=== PATIENT | male | born 1950 | race Caucasian/White ===

== ENCOUNTER 2020-04-07 16:26 | Emergency (ER) | payer MEDICARE ==
[~2020-04-07] VITALS: Ht 175.3 cm; Wt 90.9 kg
[2020-04-07] MEDS ORDERED: LISINOPRIL10 MG PO (17:29)
[2020-04-07] MEDS ORDERED: SYNTHROID112 MCG PO (17:29)
[2020-04-07] MEDS ORDERED: BUSPAR5 MG PO (17:29)
[2020-04-07] MEDS ORDERED: BENADRYL 25MG C25 MG PO (17:30)
[2020-04-07] MEDS ORDERED: EFFEXOR XR75 MG/CAP PO (17:30)
[2020-04-07] MEDS ORDERED: FISH OIL1000 MG PO (17:31)
[2020-04-07] MEDS ORDERED: VITAMIN D31000 UNI1 PO (17:31)
[2020-04-07] MEDS ORDERED: CRESTOR10 MG PO (17:32)
[2020-04-07 18:09] VITALS: BP 96/50
== END 2020-04-07 18:09 | disposition home or self-care (01) ==
LOC: ED 16:26
DX: U07.1 COVID-19 (principal); R50.9 Fever, unspecified; R52 Pain, unspecified; I10 Essential (primary) hypertension

== ENCOUNTER 2020-04-12 20:33 | Emergency (ER) | payer MEDICARE ==
[~2020-04-12] VITALS: Ht 182.9 cm; Wt 90.0 kg
[~2020-04-12 20:33] MED LIST: BENADRYL 25MG C25 MG PO; BUSPAR5 MG PO; CRESTOR10 MG PO; EFFEXOR XR75 MG/CAP PO; FISH OIL1000 MG PO; LISINOPRIL10 MG PO; SYNTHROID112 MCG PO; VITAMIN D31000 UNI1 PO
[2020-04-12 21:15] LABS: HEMATOCRIT 46.8 % (39.0-50.0); HEMOGLOBIN 15.5 g/dl (14.0-18.0); IMMATURE GRANULOCYTES 1.2 % (0.0-5.0); MEAN CELL VOLUME 89.1 fL CALC (80.0-100.0); MEAN CORPUSCULAR HGB 29.5 pG CALC (26.0-32.0); MEAN CORPUSCULAR HGB CONC 33.1 g/dL CAL (32.0-36.0); NEUT# 11.72 thou/uL (1.82-7.42); RED BLOOD COUNT 5.25 mill/uL (4.70-6.10); RED CELL DISTRI WIDTH 13.3 % (11.5-15.5)
[2020-04-12 21:34] LABS: ALBUMIN 4.1 g/dL (3.2-5.0); ALKALINE PHOSPHATASE 151 u/l (38-126); ANION GAP 14 (6-22 (CALC)); BILIRUBIN, TOTAL 0.9 mg/dL (0.0-1.4); BUN 21 mg/dL (8-23); BUN/CREATININE RATIO 20 (12-20 (CALC)); CARBON DIOXIDE 28 mmol/l (22-30); CHLORIDE 99 mmol/l (95-108); GFR > 60 ML/MIN (>=60 (CALC)); GFR FOR AFR.AMER. > 60 ML/MIN (>=60 (CALC)); INTERNATIONAL NORMALIZED RATIO 1.1 RATIO (0.7-1.3); POTASSIUM 4.5 mmol/l (3.5-5.1); PROTHROMBIN TIME 10.5 SECONDS (9.0-12.5); SGOT/AST 115 u/l (19-48); SODIUM 137 mmol/l (137-146); TOTAL PROTEIN 8.2 g/dL (6.3-8.2)
[2020-04-12 21:45] LABS: MYOGLOBIN 184 ng/mL (0 - 121)
[2020-04-12 23:01] LABS: URINE BLOOD DIPSTICK TRACE-INTACT (NEGATIVE); URINE COLOR YELLOW; URINE GLUCOSE - DIPSTICK NEGATIVE (NEGATIVE); URINE KETONE TRACE mg/dL (NEGATIVE); URINE LEUK ESTERASE NEGATIVE (NEGATIVE); URINE NITRITE - DIPSTICK NEGATIVE (Negative); URINE PROTEIN - DIPSTICK 100 mg/dL (NEG-TRACE); URINE SPECIFIC GRAVITY >=1.030
[2020-04-12 23:11] LABS: URINE BILIRUBIN - DIPSTICK SMALL (NEGATIVE)
[2020-04-12 23:14] LABS: URINE EPITHELIAL CELLS MODERATE EPI/hpf (0-FEW)
[2020-04-12 23:15] LABS: URINE BACTERIA MODERATE hpf
[2020-04-13 05:11] VITALS: BP 114/69
== END 2020-04-13 06:45 | disposition short-term general hospital (02) ==
LOC: ED 20:33 → ED-I 23:02 → ED 04-13 06:45
PROVIDERS: Emergency Medicine
DX: U07.1 COVID-19 (principal); J12.89 Other viral pneumonia; R09.02 Hypoxemia; R94.31 Abnormal electrocardiogram [ECG] [EKG]; I10 Essential (primary) hypertension